=== PATIENT | female | born 1995 | race Caucasian/White ===

== ENCOUNTER 2020-03-18 21:21 | Emergency (ER) | payer OTHER ==
[2020-03-18] MEDS ORDERED: CEPHALEXIN 500 MG CAPSULE ONE (22:03)
[2020-03-18] MEDS ORDERED: PHENAZOPYRIDINE HCL 200 MG TABLET ONE (22:04)
[2020-03-18] MEDS ORDERED: IBUPROFEN 600 MG TABLET ONE (22:04)
[2020-03-18 22:08] LABS: APPEARANCE,URINE Clear (CLEAR); BILIRUBIN,URINE Negative (NEGATIVE); COLOR,URINE Yellow (YELLOW); GLUCOSE, URINE (UA) Negative (NEGATIVE); KETONES,URINE Negative (NEGATIVE); LEUKOCYTE ESTERASE ,URINE Moderate (NEGATIVE); NITRATE,URINE Negative (NEGATIVE); OCCULT BLOOD,URINE Negative (NEGATIVE); PH,URINE 6.5 (5.0-8.0); PROTEIN,URINE Negative (NEGATIVE); UROBILINOGEN,URINE 0.2 mg/dL (0.2-1.0)
[2020-03-18 22:15] LABS: HCG,QUAL RESULT NEGATIVE (NEGATIVE)
[2020-03-18 22:20] LABS: BACTERIA,URINE Few /HPF (None Seen); RBC,URINE None Seen /HPF (0-1); SQUAMOUS EPITHELIAL CELL,UR 0-2 /HPF (0-2)
== END 2020-03-18 22:50 | disposition home or self-care (01) ==
LOC: EDH 21:21
DX: N39.0 Urinary tract infection, site not specified (principal)
CPT/HCPCS: 81001; 81025; 87088

== ENCOUNTER 2020-05-12 18:14 | Emergency (ER) | payer OTHER ==
[2020-05-12] MEDS ORDERED: LIDOCAINE HCL MPF 1% 5ML VIAL ONE (18:34)
[2020-05-12] MEDS ORDERED: CEFTRIAXONE SODIUM 1 GM ONE (18:34)
[2020-05-12] MEDS ORDERED: PHENAZOPYRIDINE HCL 200 MG TABLET ONE (18:35)
[2020-05-12 18:36] LABS: APPEARANCE,URINE Clear (CLEAR); BILIRUBIN,URINE Negative (NEGATIVE); COLOR,URINE Yellow (YELLOW); GLUCOSE, URINE (UA) Negative (NEGATIVE); KETONES,URINE Negative (NEGATIVE); LEUKOCYTE ESTERASE ,URINE Trace (NEGATIVE); NITRATE,URINE Negative (NEGATIVE); OCCULT BLOOD,URINE Negative (NEGATIVE); PH,URINE 6.5 (5.0-8.0); PROTEIN,URINE Negative (NEGATIVE); UROBILINOGEN,URINE 0.2 mg/dL (0.2-1.0)
[2020-05-12 18:49] LABS: BACTERIA,URINE Few /HPF (None Seen); MUCUS,URINE Moderate LPF (None Seen); RBC,URINE 0-1 /HPF (0-1); SQUAMOUS EPITHELIAL CELL,UR Few /HPF (0-2)
== END 2020-05-12 19:09 | disposition home or self-care (01) ==
LOC: EDH 18:14
DX: R30.0 Dysuria (principal)
CPT/HCPCS: 81001; 81025; 96372; 99283; J0696; J3490

== ENCOUNTER 2021-01-06 07:17 | Emergency (ER) | payer OTHER ==
[~2021-01-06] VITALS: Ht 162.6 cm; Wt 63.5 kg
[2021-01-06] MEDS ORDERED: AZIT500T2 PO (08:56)
[2021-01-06 08:58] VITALS: BP 122/82
== END 2021-01-06 09:13 | disposition home or self-care (01) ==
LOC: EDH 07:17
DX: J02.9 Acute pharyngitis, unspecified (principal); R51.9 Headache, unspecified; R19.7 Diarrhea, unspecified; Z20.822 Contact with and (suspected) exposure to COVID-19
CPT/HCPCS: 87635; 87804 ×2; 87880; 99283; C9803